=== PATIENT | male | born 1950 | race Caucasian/White ===

== ENCOUNTER 2021-03-05 08:27 | Emergency (ER) | payer OTHER ==
[~2021-03-05] VITALS: Ht 182.9 cm; Wt 63.5 kg
[2021-03-05 10:57] LABS: Basophils # (auto) 0 10 ^3/uL (0-0.2); Eosinophils # (auto) 0.1 10 ^3/uL (0-0.8); Eosinophils % (auto) 1.5 % (0.0-7.0); Hematocrit 40.9 % (41.0-53.0); Hemoglobin 14.2 g/dL (13.5-17.5); Monocytes # (auto) 0.6 10 ^3/uL (0-1.3)
[2021-03-05 10:59] LABS: Basophils % (auto) 0.4 % (0.0-2.0); Lymphocytes # (auto) 1.3 10 ^3/uL (0.4-5.4); Lymphocytes % (auto) 14.5 % (10.0-50.0); Mean Corpuscular Hemoglobin 35.4 pg (28.0-32.0); Mean Corpuscular Hgb Conc. 34.7 g/dL (32.0-36.0); Monocytes % (auto) 6.7 % (0.0-12.0); Neutrophils # (auto) 6.8 10 ^3/uL (1.6-8.6); Neutrophils % (auto) 76.9 % (37.0-80.0); Nucleated Red Blood Cells % 0.1 %; Red Blood Cells 4.01 10^6/uL (4.5-5.90); Red Cell Distribution Width 11.6 % (11.8-14.3); White Blood Cell 8.9 10^3/uL (4.4-10.8)
[2021-03-05 11:16] LABS: Potassium 4.6 mmol/L (3.5-5.1)
[2021-03-05 11:28] LABS: Albumin 3.2 g/dL (3.4-5.0); BUN/Creatinine Ratio 6.5; Bilirubin, Total 0.7 mg/dL (0.2-1.0); Calcium 9.1 mg/dL (8.5-10.1); Total Protein 6.9 g/dL (6.4-8.2)
[2021-03-05] MEDS ORDERED: ALBUTEROL SULF 2.5 MG/0.5ML(0.5%) NEB SOLN NEB ONE (13:30)
[2021-03-05] MEDS ORDERED: IPRATROPIUM BROM 0.5 MG/2.5ML INH SOL NEB ONE (13:30)
[2021-03-05 14:36] VITALS: BP 140/68
== END 2021-03-05 14:41 | disposition home or self-care (01) ==
LOC: EDBD 08:27 → ER 08:27
DX: J44.1 Chronic obstructive pulmonary disease with (acute) exacerbation (principal)
CPT/HCPCS: 36415; 71046; 80053; 83880; 84484; 85025; 93005; 94640; 99285; J7644

== ENCOUNTER 2021-05-23 20:26 | Inpatient (IN) | payer OTHER ==
[~2021-05-23] VITALS: Ht 172.7 cm; Wt 68.0 kg
[2021-05-23] MEDS ORDERED: ALBUTEROL SULF 2.5 MG/0.5ML(0.5%) NEB SOLN NEB ONE (21:00)
[2021-05-23] MEDS ORDERED: IPRATROPIUM BROM 0.5 MG/2.5ML INH SOL NEB ONE (21:00)
[2021-05-23 22:13] LABS: Basophils # (auto) 0.1 10 ^3/uL (0-0.2); Basophils % (auto) 0.8 % (0.0-2.0); Lymphocytes # (auto) 1.8 10 ^3/uL (0.4-5.4); Monocytes # (auto) 0.7 10 ^3/uL (0-1.3)
[2021-05-23 22:15] LABS: Eosinophils # (auto) 0.3 10 ^3/uL (0-0.8); Eosinophils % (auto) 2.8 % (0.0-7.0); Hematocrit 39.6 % (41.0-53.0); Hemoglobin 13.4 g/dL (13.5-17.5); Mean Corpuscular Hemoglobin 34.5 pg (28.0-32.0); Mean Corpuscular Hgb Conc. 33.9 g/dL (32.0-36.0); Mean Corpuscular Volume 101.6 fL (80.0-100.0); Monocytes % (auto) 7.7 % (0.0-12.0); Neutrophils # (auto) 6.5 10 ^3/uL (1.6-8.6); Neutrophils % (auto) 69.7 % (37.0-80.0); Red Cell Distribution Width 12.2 % (11.8-14.3); White Blood Cell 9.3 10^3/uL (4.4-10.8)
[2021-05-23 22:26] LABS: Magnesium 2.1 mg/dL (1.6-2.6)
[2021-05-23 22:28] LABS: Lactic Acid w/Reflex 5.6 mmol/L (0.4-2.0)
[2021-05-23] MEDS ORDERED: SODIUM CHLORIDE 0.9% 1,000 ML IV ONE (23:15)
[2021-05-24 00:31] LABS: Albumin 3.4 g/dL (3.4-5.0); BUN/Creatinine Ratio 7.1; Calcium 9.4 mg/dL (8.5-10.1); Potassium 3.5 mmol/L (3.5-5.1)
[2021-05-24 00:33] LABS: Bilirubin, Total 0.5 mg/dL (0.2-1.0); Total Protein 6.7 g/dL (6.4-8.2)
[2021-05-24 00:51] LABS: Urine Bacteria FEW /hpf (None Seen); Urine Blood 1+ /uL (Negative); Urine Specific Gravity 1.008 (1.001-1.035); Urine WBC 8 /hpf (0 - 3)
[2021-05-24] MEDS ORDERED: cefTRIAXone 1GM/50ML D5W 50 ML IV ONE (02:15)
[2021-05-24] MEDS ORDERED: ONDANSETRON HCL 4 MG/2 ML VIAL IV PRN (06:15)
[2021-05-24] MEDS ORDERED: NITROGLYCERIN 0.4 MG SL TAB SL PRN (06:15)
[2021-05-24] MEDS ORDERED: MORPHINE SULFATE INJECTION 2 MG/ML SYRG IV PRN (06:15)
[2021-05-24] MEDS ORDERED: ALBUTEROL SULF 2.5 MG/0.5ML(0.5%) NEB SOLN NEB PRN (06:15)
[2021-05-24] MEDS: LOSARTAN POTASSIUM 25 MG TAB PO SCH (09:45)
[2021-05-24] MEDS: ENOXAPARIN SOD 40 MG/0.4 ML SYRINGE SC SCH (09:46)
[2021-05-24] MEDS ORDERED: PANTOPRAZOLE 40 MG TAB PO SCH (10:00)
[2021-05-24] MEDS ORDERED: NICOTINE 21MG/24 HR TOPICAL PATCH TD ONE (15:45)
[2021-05-24 19:28] LABS: Amphetamine Screen, Urine NEGATIVE (NEGATIVE); Barbiturate Scree,Urine NEGATIVE (NEGATIVE); Benzodiazephine Screen, Urine NEGATIVE (NEGATIVE); Cannabinoid Screen, Urine NEGATIVE (NEGATIVE); Cocaine Screen, Urine NEGATIVE (NEGATIVE); Opiate Scree,Urine NEGATIVE (NEGATIVE); Phencyclidine Screen, Urine NEGATIVE (NEGATIVE)
[2021-05-24 20:16] VITALS: BP 155/75
[2021-05-24] MEDS: cefTRIAXone 1GM/50ML D5W 50 ML IV SCH (22:17)
[2021-05-24] MEDS: ATORVASTATIN 20 MG TAB PO SCH (22:17)
[2021-05-24] MEDS: ACETAMINOPHEN 325 MG TAB PO PRN (22:30)
[2021-05-25 05:32] LABS: Eosinophils # (auto) 0.4 10 ^3/uL (0-0.8); Eosinophils % (auto) 5.6 % (0.0-7.0); Monocytes # (auto) 0.7 10 ^3/uL (0-1.3); Neutrophils # (auto) 4.3 10 ^3/uL (1.6-8.6); Nucleated Red Blood Cells % 0.1 %
[2021-05-25 05:37] LABS: Basophils # (auto) 0.1 10 ^3/uL (0-0.2); Basophils % (auto) 0.7 % (0.0-2.0); Hematocrit 35.5 % (41.0-53.0); Hemoglobin 12.1 g/dL (13.5-17.5); Lymphocytes # (auto) 1.8 10 ^3/uL (0.4-5.4); Lymphocytes % (auto) 25.2 % (10.0-50.0); Mean Corpuscular Hemoglobin 34.7 pg (28.0-32.0); Mean Corpuscular Hgb Conc. 34.1 g/dL (32.0-36.0); Mean Corpuscular Volume 101.9 fL (80.0-100.0); Neutrophils % (auto) 59.5 % (37.0-80.0); Red Blood Cells 3.48 10^6/uL (4.5-5.90); White Blood Cell 7.2 10^3/uL (4.4-10.8)
[2021-05-25 06:01] LABS: Albumin 2.9 g/dL (3.4-5.0); BUN/Creatinine Ratio 8.4; Bilirubin, Total 0.5 mg/dL (0.2-1.0); Total Protein 5.5 g/dL (6.4-8.2)
[2021-05-25 06:27] VITALS: BP 147/79
[2021-05-25 09:00] VITALS: BP 154/77
[2021-05-25] MEDS: NICOTINE 21MG/24 HR TOPICAL PATCH TD SCH (10:00)
[2021-05-25] MEDS: LOSARTAN POTASSIUM 25 MG TAB PO SCH (10:23)
[2021-05-25] MEDS: ENOXAPARIN SOD 40 MG/0.4 ML SYRINGE SC SCH (10:24)
[2021-05-25 13:00] VITALS: BP 148/74
[2021-05-25] MEDS ORDERED: ATOR20TA PO (14:23)
[2021-05-25] MEDS ORDERED: FLUT1AER6 PO (14:23)
[2021-05-25] MEDS ORDERED: LOSA25TA38 PO (14:23)
[2021-05-25] MEDS ORDERED: ALBUAER3 IN (14:23)
[2021-05-25] MEDS ORDERED: CHOLECALCIFEROL (VITD3) 2,000 UNIT CAP/TAB PO ONE (16:45)
[2021-05-25] MEDS ORDERED: FOLIC ACID 1 MG TAB PO ONE (16:45)
[2021-05-25] MEDS ORDERED: MULTIPLE VITAMINS W/ MINERALS TAB PO ONE (16:45)
[2021-05-25] MEDS ORDERED: THIAMINE HCL 100 MG TAB PO ONE (16:45)
[2021-05-25 17:00] VITALS: BP 141/79
[2021-05-25] MEDS: cefTRIAXone 1GM/50ML D5W 50 ML IV SCH (20:16)
[2021-05-25] MEDS: ACETAMINOPHEN 325 MG TAB PO PRN (20:16)
[2021-05-25] MEDS: ATORVASTATIN 20 MG TAB PO SCH (21:13)
[2021-05-25 22:00] VITALS: BP 145/75
[2021-05-26 05:00] VITALS: BP 137/77
[2021-05-26 07:15] LABS: Potassium 3.6 mmol/L (3.5-5.1)
[2021-05-26 07:22] LABS: Magnesium 2.3 mg/dL (1.6-2.6)
[2021-05-26 07:27] LABS: INR 1.05 (0.9-1.15)
[2021-05-26 09:00] VITALS: BP 141/71
[2021-05-26] MEDS: NICOTINE 21MG/24 HR TOPICAL PATCH TD SCH (10:00)
[2021-05-26] MEDS: MULTIPLE VITAMINS W/ MINERALS TAB PO SCH (10:12)
[2021-05-26] MEDS: FOLIC ACID 1 MG TAB PO SCH (10:12)
[2021-05-26] MEDS: CHOLECALCIFEROL (VITD3) 2,000 UNIT CAP/TAB PO SCH (10:12)
[2021-05-26] MEDS: LOSARTAN POTASSIUM 25 MG TAB PO SCH (10:12)
[2021-05-26] MEDS: THIAMINE HCL 100 MG TAB PO SCH (10:12)
[2021-05-26] MEDS: ENOXAPARIN SOD 40 MG/0.4 ML SYRINGE SC SCH (10:12)
[2021-05-26 13:00] VITALS: BP 153/82
[2021-05-26] MEDS: ACETAMINOPHEN 325 MG TAB PO PRN (16:15)
[2021-05-26 17:00] VITALS: BP 124/76
[2021-05-26] MEDS: cefTRIAXone 1GM/50ML D5W 50 ML IV SCH (21:01)
[2021-05-26] MEDS: ATORVASTATIN 20 MG TAB PO SCH (21:01)
[2021-05-27 06:29] LABS: Hematocrit 36.9 % (41.0-53.0); Hemoglobin 12.9 g/dL (13.5-17.5)
[2021-05-27 08:38] VITALS: BP 119/74
[2021-05-27] MEDS: NICOTINE 21MG/24 HR TOPICAL PATCH TD SCH ×2 (08:44→10:08)
[2021-05-27] MEDS: LOSARTAN POTASSIUM 25 MG TAB PO SCH (10:07)
[2021-05-27] MEDS: FOLIC ACID 1 MG TAB PO SCH (10:07)
[2021-05-27] MEDS: THIAMINE HCL 100 MG TAB PO SCH (10:07)
[2021-05-27] MEDS: ENOXAPARIN SOD 40 MG/0.4 ML SYRINGE SC SCH (10:08)
[2021-05-27] MEDS: CHOLECALCIFEROL (VITD3) 2,000 UNIT CAP/TAB PO SCH (10:08)
[2021-05-27] MEDS: MULTIPLE VITAMINS W/ MINERALS TAB PO SCH (10:08)
[2021-05-27 12:30] VITALS: BP 121/68
[2021-05-27] MEDS ORDERED: CHOL20007 PO (13:18)
[2021-05-27] MEDS ORDERED: THIA100T5 PO (13:27)
[2021-05-27] MEDS ORDERED: MULT-351 PO (13:27)
[2021-05-27] MEDS ORDERED: FOLI1TAB6 PO (13:27)
[2021-05-27] MEDS: ACETAMINOPHEN 325 MG TAB PO PRN (14:33)
[2021-05-28 09:40] LABS: Folate (Folic Acid) > 24.00 ng/mL (5.38-24)
== END 2021-05-27 18:59 | disposition home or self-care (01) | DRG 897 ==
LOC: EDBD 20:26 → ER 20:29 → TELE 05-24 06:06 → TELE-WESTW 05-24 18:22
PROVIDERS: ADMIT Nurse Practitioner; ATTEND Internal Medicine
DX: F10.10 Alcohol abuse, uncomplicated (principal); N39.0 Urinary tract infection, site not specified; I10 Essential (primary) hypertension; J44.9 Chronic obstructive pulmonary disease, unspecified; E55.9 Vitamin D deficiency, unspecified; F17.200 Nicotine dependence, unspecified, uncomplicated; Z20.822 Contact with and (suspected) exposure to COVID-19; R26.89 Other abnormalities of gait and mobility; Z71.41 Alcohol abuse counseling and surveillance of alcoholic; Z71.6 Tobacco abuse counseling; Z86.11 Personal history of tuberculosis
CPT/HCPCS: 36415; 70450; 70551; 71045; 80053; 80061; 80307; 81001; 82306; 82607; 82746; 83605; 83735; 84132; 84443; 84484; 85014; 85018; 85025; 85610; 87040; 87086; 87426; 93005; 93306; 93886; 94640; 95819; 96360; 97163; G0378; J0696

== ENCOUNTER 2023-01-01 12:19 | Emergency (ER) | payer OTHER ==
[~2023-01-01] VITALS: Ht 175.3 cm; Wt 68.0 kg
[~2023-01-01 12:19] MED LIST: ALBUAER3 IN; ATOR20TA PO; FLUT1AER6 PO; FOLI-119 PO; LOSA25TA15 PO; MULT-351 PO
[2023-01-01] MEDS ORDERED: SODIUM CHLORIDE 0.9% 500 ML IVB ONE (12:45)
[2023-01-01 14:18] LABS: Basophils # (auto) 0 10 ^3/uL (0-0.2); Basophils % (auto) 0.5 % (0.0-2.0); Eosinophils # (auto) 0.1 10 ^3/uL (0-0.8); Eosinophils % (auto) 1.6 % (0.0-7.0); Hematocrit 37.4 % (41.0-53.0); Hemoglobin 12.4 g/dL (13.5-17.5); Lymphocytes # (auto) 1.2 10 ^3/uL (0.4-5.4); Lymphocytes % (auto) 13.2 % (10.0-50.0); Mean Corpuscular Hemoglobin 33.3 pg (28.0-32.0); Mean Corpuscular Hgb Conc. 33.3 g/dL (32.0-36.0); Mean Corpuscular Volume 100.2 fL (80.0-100.0); Monocytes # (auto) 0.5 10 ^3/uL (0-1.3); Monocytes % (auto) 5.3 % (0.0-12.0); Neutrophils # (auto) 6.9 10 ^3/uL (1.6-8.6); Neutrophils % (auto) 79.4 % (37.0-80.0); Nucleated Red Blood Cells % 0.1 %; Red Blood Cells 3.73 10^6/uL (4.5-5.90); Red Cell Distribution Width 12.7 % (11.8-14.3); White Blood Cell 8.7 10^3/uL (4.4-10.8)
[2023-01-01 14:31] LABS: Alanine Aminotransferase 34 U/L (7-40); Alkaline Phosphatase 112 U/L (46-116); Anion Gap 2.4 (5-15); Aspartate Aminotransferase 45 U/L (13-40); BUN/Creatinine Ratio 8.5 (10.0-20.0); Blood Urea Nitrogen 11 mg/dL (9-23); Calcium 9.5 mg/dL (8.5-10.1); Carbon Dioxide 27.6 mmol/L (20-30); Chloride 108 mmol/L (98-107); Glucose 106 mg/dL (74-106); INR 1.01 (0.9-1.15); Lipase 46 U/L (12-53); Magnesium 1.9 mg/dL (1.6-2.6); Partial Thromboplastin Time 26.6 SEC (24.5-34.5); Potassium 4.2 mmol/L (3.5-5.1); Prothrombin Time 10.6 sec (9.3-11.8); Sodium 138 mmol/L (136-145)
[2023-01-01 14:32] LABS: Bilirubin, Total 0.8 mg/dL (0.2-1.0); Total Protein 6.5 g/dL (5.7-8.2)
[2023-01-01] MEDS: SODIUM CHLORIDE 0.9% 1,000 ML IV ONE ×2 (15:52→16:53)
[2023-01-01 18:15] LABS: Urine Bacteria NONE SEEN /hpf (None Seen); Urine Blood Negative /uL (Negative); Urine Clarity Clear (Clear); Urine Color Colorless (Yellow); Urine Protein, UAD Negative (Negative); Urine Urobilinogen Normal (Negative); Urine WBC 4 /hpf (0 - 3)
[2023-01-01] MEDS ORDERED: cefTRIAXone 1GM/50ML D5W 50 ML IV ONE (20:45)
[2023-01-01] MEDS ORDERED: metroNIDAZOLE 500MG/100ML 100 ML IV ONE (20:45)
[2023-01-01 23:11] VITALS: PULSE 83; RESP 16; O2SAT 99
[2023-01-02 01:06] VITALS: BP 159/78; PULSE 81; RESP 16; TEMP 98.1; O2SAT 98
== END 2023-01-02 02:51 | disposition short-term general hospital (02) ==
LOC: ER 12:19 → EDBD 12:19 → ER 01-02 02:51
DX: K62.5 Hemorrhage of anus and rectum (principal); K62.89 Other specified diseases of anus and rectum; N20.0 Calculus of kidney; R91.1 Solitary pulmonary nodule; I70.90 Unspecified atherosclerosis; I10 Essential (primary) hypertension; E78.5 Hyperlipidemia, unspecified; J44.9 Chronic obstructive pulmonary disease, unspecified; F17.210 Nicotine dependence, cigarettes, uncomplicated; Z79.899 Other long term (current) drug therapy
CPT/HCPCS: 36415; 71046; 74177; 80053; 81001; 83690; 83735; 85025; 85610; 85730; 93005; 96361; 96365; 96368; 99285; J0696; J3490; J7030; J7040; Q9967

== ENCOUNTER 2024-01-27 16:18 | Emergency (ER) | payer OTHER ==
[~2024-01-27] VITALS: Ht 167.6 cm; Wt 50.9 kg
[~2024-01-27 16:18] MED LIST changes: +LOSA-533 PO; -LOSA25TA15 PO
[2024-01-27 18:42] LABS: Amphetamine Screen, Urine Neg (NEGATIVE); Barbiturate Scree,Urine Neg (NEGATIVE); Benzodiazephine Screen, Urine Neg (NEGATIVE); Cocaine Screen, Urine Neg (NEGATIVE); Opiate Scree,Urine Neg (NEGATIVE)
[2024-01-27 18:43] LABS: Cannabinoid Screen, Urine Neg (NEGATIVE); Phencyclidine Screen, Urine Neg (NEGATIVE)
[2024-01-27 18:50] LABS: Basophils # (auto) 0 10 ^3/uL (0-0.2); Eosinophils # (auto) 0.1 10 ^3/uL (0-0.8); Mean Corpuscular Volume 78.2 fL (80.0-100.0); Monocytes # (auto) 0.4 10 ^3/uL (0-1.3); Nucleated Red Blood Cells % 0.1 %
[2024-01-27 18:50] LABS: Urine Bacteria FEW /hpf (None Seen); Urine Blood Negative /uL (Negative); Urine Clarity Clear (Clear); Urine Color Colorless (Yellow); Urine Protein, UAD Negative (Negative); Urine Specific Gravity 1.004 (1.001-1.035); Urine Urobilinogen Normal (Negative); Urine WBC 5 /hpf (0 - 3)
[2024-01-27 18:53] LABS: Basophils % (auto) 0.6 % (0.0-2.0); Hematocrit 27.1 % (41.0-53.0); Hemoglobin 8.6 g/dL (13.5-17.5); Lymphocytes # (auto) 1.4 10 ^3/uL (0.4-5.4); Lymphocytes % (auto) 24.9 % (10.0-50.0); Mean Corpuscular Hemoglobin 24.9 pg (28.0-32.0); Mean Corpuscular Hgb Conc. 31.9 g/dL (32.0-36.0); Monocytes % (auto) 6.9 % (0.0-12.0); Neutrophils # (auto) 3.7 10 ^3/uL (1.6-8.6); Neutrophils % (auto) 65.6 % (37.0-80.0); Platelet Count (auto) 319 10^3/uL (140-450); Red Blood Cells 3.47 10^6/uL (4.5-5.90); Red Cell Distribution Width 19.3 % (11.8-14.3); White Blood Cell 5.6 10^3/uL (4.4-10.8)
[2024-01-27 19:08] LABS: Alanine Aminotransferase 21 U/L (7-40); Albumin 3.7 g/dL (3.2-4.8); Alkaline Phosphatase 159 U/L (46-116); Anion Gap 7 (5-15); Aspartate Aminotransferase 38 U/L (13-40); BUN/Creatinine Ratio 6.3 (10.0-20.0); Bilirubin, Total 0.6 mg/dL (0.2-1.0); Blood Urea Nitrogen 8 mg/dL (9-23); Calcium 8.4 mg/dL (8.7-10.4); Carbon Dioxide 20 mmol/L (20-31); Chloride 109 mmol/L (98-107); Glucose 87 mg/dL (74-106); Lipase 42 U/L (12-53); Potassium 3.6 mmol/L (3.5-5.1); Sodium 136 mmol/L (136-145); Total Protein 6.1 g/dL (5.7-8.2)
[2024-01-27] MEDS ORDERED: CEPH500C PO (20:45)
[2024-01-27 21:40] VITALS: BP 156/60; PULSE 78; RESP 18; TEMP 98; O2SAT 99
== END 2024-01-27 21:50 | disposition home or self-care (01) ==
LOC: ER 16:18 → EDBD 16:18 → ER 21:50
DX: M62.81 Muscle weakness (generalized) (principal); D64.9 Anemia, unspecified; N39.0 Urinary tract infection, site not specified; E78.5 Hyperlipidemia, unspecified; I10 Essential (primary) hypertension; J44.9 Chronic obstructive pulmonary disease, unspecified; F17.210 Nicotine dependence, cigarettes, uncomplicated; Z79.899 Other long term (current) drug therapy; Z79.51 Long term (current) use of inhaled steroids; Z98.890 Other specified postprocedural states
CPT/HCPCS: 36415; 70450; 71045; 80053; 80307; 81001; 83690; 84484; 85025